=== PATIENT | male | born 1935 | race Caucasian/White ===

== ENCOUNTER 2018-10-05 14:57 | Emergency (ER) | payer MEDICARE, OTHER ==
[~2018-10-05] VITALS: Ht 167.6 cm; Wt 72.1 kg
--- NOTE | 2018-10-05 15:02 | NUR ---
PT A/OX4, PRESENTS TO THE ER W/ FAMILY MEMBERS S/P MECHANICAL FALL OUT OF BED THIS AM. PT PRESENTS W/ ABRASION TO FOREHEAD, SWELLING/BRUISING TO THE L PERIORBITAL AREA. PT REPORTS NON-PROVOKED PAIN, ACHING IN QUALITY, DOES NOT RADIATE, 6/10, CONSTANT. PT DENIES C/P, SOB, N/V/D, DIZZINESS, HEADACHE. VSS. ER MD AT BEDSIDE FOR MSE.
--- NOTE | 2018-10-05 15:05 | NUR ---
PT DENIES LOC AT TIME OF MECHANICAL FALL.
--- NOTE | 2018-10-05 15:29 | NUR ---
PT TAKEN TO RADIOLOGY FOR CT SCAN.
--- NOTE | 2018-10-05 15:43 | NUR ---
PATIENT BACK IN ER FROM RADIOLOGY.
--- NOTE | 2018-10-05 16:05 | NUR ---
DPatient discharged to home in stable conditon. Written and verbal after care instructions given. Patient verbalizes understanding of instructions.
[2018-10-05 16:12] VITALS: BP 162/75
== END 2018-10-05 16:13 | disposition home or self-care (01) ==
LOC: ER 14:57
DX: S00.83XA Contusion of other part of head, initial encounter (principal); E11.9 Type 2 diabetes mellitus without complications; W18.30XA Fall on same level, unspecified, initial encounter; Y93.89 Activity, other specified; Y92.89 Other specified places as the place of occurrence of the external cause; Y99.8 Other external cause status
CPT/HCPCS: 70450; 70480; A4663